=== PATIENT | female | born 1965 | race Caucasian/White ===

== ENCOUNTER 2016-10-05 13:26 | Emergency (ER) | payer OTHER ==
[2016-10-05 14:31] VITALS: BP 154/63
--- NOTE | 2016-10-05 15:47 | UC ---
Throat Pain/Nasal Ryan HPI - HPI Summary HPI Summary: complaint of nasal congestion that started 4 days ago sore throat pain which is worsening having some wheezing fever of 103 this morning coughing which is worse at night hasn't taken any medication for her symptoms has been using albuterol 2-3 times per day with relief - History of Current Complaint Chief Complaint: UCGeneralIllness Stated Complaint: COUGH,THROAT,CONGESTION Time Seen by Provider: 10/05/16 15:41 Hx Obtained From: Patient Hx Last Menstrual Period: 1995 - Allergies/Home Medications Allergies/Adverse Reactions: Allergies Allergy/AdvReac Type Severity Reaction Status Date / Time Penicillins Allergy Intermediate Rash Verified 10/05/16 14:31 enviromental Allergy Intermediate sob Uncoded 10/05/16 14:31 ,cough,wheezing premixed albuterol and Allergy See Comment Uncoded 10/05/16 14:31 ipratropium Home Medications: Home Medications Meloxicam [Mobic] 7.5 mg PO BID 10/05/16 [History Confirmed 10/05/16] PMH/Surg Hx/FS Hx/Imm Hx Previously Healthy: Yes Endocrine History Of: Denies: Diabetes, Thyroid Disease Cardiovascular History Of: Denies: Cardiac Disorders, Hypertension, Myocardial Infarction, Atrial Fibrillation Respiratory History Of: Reports: COPD - emphysema, Asthma, Bronchitis, Pneumonia GI/ History Of: Denies: Ulcer, Gastrointestinal Bleed Neurological History Of: Denies: CVA Psychological History Of: Denies: Depression Cancer History Of: Denies: Lung Cancer - Surgical History Surgical History: Yes Surgery Procedure, Year, and Place: Cholecystectomy. Hysterectomy, 1995, [place], [place] - Family History Known Family History: Positive: Respiratory Disease Negative: Hypertension, Diabetes - Social History Occupation: Disabled Lives: With Family Alcohol Use: Rare Substance Use Type: None Smoking Status (MU): Light Every Day Tobacco Smoker Type: Cigarettes Amount Used/How Often: 0 Length of Time of Smoking/Using Tobacco: 36 Years Have You Smoked in the Last Year: Yes When Did the Patient Quit Smoking/Using Tobacco: 04/30/16 Household Exposure Type: Cigarettes Cessation Counseling: Patient Advised to Stop - Immunization History Most Recent Influenza Vaccination: NOT THIS SEASON Review of Systems Constitutional: Fever Skin: Negative Eyes: Negative ENT: Sore Throat, Ear Ache, Nasal Discharge Respiratory: Cough Cardiovascular: Negative Gastrointestinal: Negative Genitourinary: Negative Motor: Negative Neurovascular: Negative Musculoskeletal: Negative Neurological: Negative Psychological: Negative All Other Systems Reviewed And Are Negative: Yes Physical Exam Triage Information Reviewed: Yes Appearance: No Pain Distress, Well-Nourished Vital Signs: Initial Vital Signs Temp 98.0 F 10/05/16 14:25 Pulse 90 10/05/16 14:25 Resp 18 10/05/16 14:25 BP 154/63 10/05/16 14:25 Pulse Ox 99 10/05/16 14:25 Vital Signs Reviewed: Yes Eyes: Positive: Conjunctiva Clear ENT: Positive: Pharyngeal erythema, Nasal congestion, Nasal drainage, TMs normal. Negative: Tonsillar swelling, Tonsillar exudate Neck: Positive: No Lymphadenopathy Respiratory: Positive: Rhonchi - throughout all lungs munoz, Wheezing Cardiovascular: Positive: RRR, No Murmur, Pulses Normal Abdomen Description: Positive: Nontender, Soft Bowel Sounds: Positive: Present Musculoskeletal: Positive: No Edema Neurological: Positive: Alert Psychological Exam: Normal Skin Exam: Normal Throat Pain/Nasal Course/Dx - Course Course Of Treatment: exam completed. 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 will followup with Dr Alvarado - Differential Dx/Diagnosis Differential Diagnosis/HQI/PQRI: Sinusitis, URI, Other - COPD exacerbation Provider Diagnoses: COPD exacerbation Discharge - Discharge Plan Condition: Stable Disposition: HOME Prescriptions: Azithromycin TAB* [Zithromax TAB (Z-ART) 250 mg #6 tabs] 2 tab PO .TODAY, THEN 1 DAILY #1 art predniSONE TAB* [Deltasone TAB*] 50 mg PO DAILY #5 tab Patient Education Materials: COPD (Chronic Obstructive Pulmonary Disease) (ED) Referrals: Nilo Alvarado MD [Primary Care Provider] - Additional Instructions: Start antibiotic and prednisone as directed Increase fluids and rest Take acetaminophen or ibuprofen for fever or pain use your albuterol as needed for shortness of breath and wheezing every 4-6 hours Please review your discharge instructions. If your symptoms do not improve please call your primary care provider or return to urgent care
== END 2016-10-05 16:02 | disposition home or self-care (01) ==
LOC: UCCORT 13:26
DX: J44.1 Chronic obstructive pulmonary disease with (acute) exacerbation (principal); J45.998 Other asthma; R50.9 Fever, unspecified; R05 Cough; F17.210 Nicotine dependence, cigarettes, uncomplicated; Z71.6 Tobacco abuse counseling; Z88.8 Allergy status to other drugs, medicaments and biological substances; Z88.0 Allergy status to penicillin
CPT/HCPCS: 99212; G0463

== ENCOUNTER 2017-01-09 19:20 | Emergency (ER) | payer OTHER ==
[2017-01-09 19:37] VITALS: BP 152/66
[2017-01-09] MEDS ORDERED: Albuterol 2.5 MG/3 ML NEB.SOL* (0.083%) INH ONE (20:01)
[2017-01-09] MEDS ORDERED: Ipratropium 0.5MG/2.5ML NEB* 0.5 MG/2.5 ML NEB.SOLN INH ONE (20:01)
[2017-01-09] MEDS ORDERED: methylPREDNISolone 125 MG* 2 ML VIAL IM ONE (20:01)
--- NOTE | 2017-01-09 20:07 | UC ---
Respiratory Complaint HPI - HPI Summary HPI Summary: Trouble breathing starting 3 days ago, now unable to lie flat. Thick sputum and nasal congestion, denies fever. Pt has COPD. - History of Current Complaint Chief Complaint: UCRespiratory Stated Complaint: CHEST ESTEVAN/SINUS/UPPER RESP. Time Seen by Provider: 01/09/17 19:45 Hx Obtained From: Patient Hx Last Menstrual Period: 1995 ?: No Onset/Duration: Gradual Onset, Lasting Days Timing: Constant Severity Initially: Mild Severity Currently: Moderate Character: Cough: Nonproductive Aggravating Factors: Exertion, Deep Breaths, Recumbent Position Alleviating Factors: Bronchodilator, Upright Position Associated Signs And Symptoms: Positive: Dyspnea, Wheezing, URI, Nasal Congestion. Negative: Fever, Chills - Allergies/Home Medications Allergies/Adverse Reactions: Allergies Allergy/AdvReac Type Severity Reaction Status Date / Time Penicillins Allergy Intermediate Rash Verified 01/09/17 19:37 enviromental Allergy Intermediate sob Uncoded 01/09/17 19:37 ,cough,wheezing premixed albuterol and Allergy See Comment Uncoded 01/09/17 19:37 ipratropium Home Medications: Home Medications celeCOXIB CAP* [Celebrex CAP*] 200 mg PO DAILY 01/09/17 [History Confirmed 01/09] PMH/Surg Hx/FS Hx/Imm Hx Endocrine History Of: Denies: Diabetes, Thyroid Disease Cardiovascular History Of: Denies: Cardiac Disorders, Hypertension, Myocardial Infarction, Atrial Fibrillation Respiratory History Of: Reports: COPD - emphysema, Asthma, Bronchitis, Pneumonia GI/ History Of: Denies: Ulcer, Gastrointestinal Bleed Neurological History Of: Denies: CVA Psychological History Of: Denies: Depression Cancer History Of: Denies: Lung Cancer - Surgical History Surgical History: Yes Surgery Procedure, Year, and Place: Cholecystectomy. Hysterectomy, 1995, [place], [place] - Family History Known Family History: Positive: Respiratory Disease Negative: Hypertension, Diabetes - Social History Alcohol Use: Rare Substance Use Type: None Smoking Status (MU): Light Every Day Tobacco Smoker Type: Cigarettes Amount Used/How Often: 0 Length of Time of Smoking/Using Tobacco: 36 Years Have You Smoked in the Last Year: Yes When Did the Patient Quit Smoking/Using Tobacco: 04/30/16 Household Exposure Type: Cigarettes - Immunization History Most Recent Influenza Vaccination: NOT THIS SEASON Review of Systems Constitutional: Negative Skin: Negative Eyes: Negative ENT: Nasal Discharge Respiratory: Shortness Of Breath, Cough Cardiovascular: Negative Gastrointestinal: Negative Genitourinary: Negative Motor: Negative Neurovascular: Negative Musculoskeletal: Negative Neurological: Negative Psychological: Negative All Other Systems Reviewed And Are Negative: Yes Physical Exam Triage Information Reviewed: Yes Appearance: Ill-Appearing, Obese Vital Signs: Initial Vital Signs Temp 97.8 F 01/09/17 19:33 Pulse 84 01/09/17 19:33 Resp 24 01/09/17 19:33 BP 152/66 01/09/17 19:33 Pulse Ox 94 01/09/17 19:33 Vital Signs Reviewed: Yes Eye Exam: Normal Eyes: Positive: Conjunctiva Clear ENT: Positive: Hearing grossly normal, Pharynx normal, Nasal congestion, TMs normal Dental Exam: Normal Neck exam: Normal Neck: Positive: Supple, Nontender, No Lymphadenopathy Respiratory: Positive: Respiratory distress, Decreased breath sounds, Wheezing, Expiration, Inspiration, Other: - tachypnea Cardiovascular Exam: Normal Cardiovascular: Positive: RRR, No Murmur Musculoskeletal Exam: Normal Neurological Exam: Normal Neurological: Positive: Alert Psychological Exam: Normal Skin Exam: Normal UC Diagnostic Evaluation - Laboratory O2 Sat by Pulse Oximetry: 94 Re-Evaluation - Re-Evaluation 1 Re-Evaluation Time: 20:39 Change: Improved - wheezing noises and aim movement increased, pt reports improvement Respiratory Course/Dx - Differential Dx/Diagnosis Provider Diagnoses: COPD exacerbation. bronchospasm Discharge - Discharge Plan Condition: Stable Disposition: HOME
[2017-01-09] MEDS ORDERED: Azithromycin TAB* 250 MG PO ONE (20:36)
[2017-01-09] MEDS ORDERED: Albuterol HFA INHALER* 8 gm MDI INH ONE (20:46)
== END 2017-01-09 21:15 | disposition home or self-care (01) ==
LOC: UCCORT 19:20
DX: J44.1 Chronic obstructive pulmonary disease with (acute) exacerbation (principal); J98.01 Acute bronchospasm; E66.9 Obesity, unspecified; Z90.49 Acquired absence of other specified parts of digestive tract; Z90.710 Acquired absence of both cervix and uterus; Z88.0 Allergy status to penicillin; Z87.891 Personal history of nicotine dependence
CPT/HCPCS: 96372; 99213; A9270-GY; G0463; J2930; J7644

== ENCOUNTER 2017-02-20 09:31 | Emergency (ER) | payer OTHER ==
[2017-02-20 10:39] VITALS: BP 96/69
--- NOTE | 2017-02-20 10:50 | UC ---
Respiratory Complaint HPI - HPI Summary HPI Summary: Gradually increasing trouble breathing, wheezing, nasal congestion, chest congestion. Feels that allergies area big part of it, is out of her loratadine. - History of Current Complaint Chief Complaint: UCRespiratory Stated Complaint: UPPER RESPIRATORY Time Seen by Provider: 02/20/17 10:40 Hx Obtained From: Patient Hx Last Menstrual Period: 1995 ?: No Onset/Duration: Gradual Onset, Lasting Days Timing: Constant Severity Initially: Mild Severity Currently: Severe Character: Cough: Productive Aggravating Factors: Exertion, Deep Breaths, Recumbent Position Alleviating Factors: Upright Position Associated Signs And Symptoms: Positive: Dyspnea, Wheezing, Nasal Congestion, Hoarseness, Sinus Discomfort - Allergies/Home Medications Allergies/Adverse Reactions: Allergies Allergy/AdvReac Type Severity Reaction Status Date / Time Penicillins Allergy Intermediate Rash Verified 02/20/17 10:34 enviromental Allergy Intermediate sob Uncoded 02/20/17 10:34 ,cough,wheezing premixed albuterol and Allergy See Comment Uncoded 02/20/17 10:34 ipratropium PMH/Surg Hx/FS Hx/Imm Hx Respiratory History: COPD, Asthma Psychological History: Depression - Surgical History Surgical History: Yes Surgery Procedure, Year, and Place: Cholecystectomy. Hysterectomy, 1995, [place], [place] - Family History Known Family History: Positive: Respiratory Disease Negative: Hypertension, Diabetes - Social History Alcohol Use: Rare Substance Use Type: None Smoking Status (MU): Former Smoker Type: Cigarettes Amount Used/How Often: 1/2 PPD Length of Time of Smoking/Using Tobacco: 39 Years Have You Smoked in the Last Year: Yes When Did the Patient Quit Smoking/Using Tobacco: ~11/20/16 Household Exposure Type: Cigarettes - Immunization History Most Recent Influenza Vaccination: NOT THIS SEASON Review of Systems Constitutional: Fatigue Skin: Negative Eyes: Negative ENT: Nasal Discharge, Sinus Congestion Respiratory: Shortness Of Breath, Cough Cardiovascular: Negative Gastrointestinal: Negative Genitourinary: Negative Motor: Negative Neurovascular: Negative Musculoskeletal: Negative Neurological: Negative Psychological: Negative All Other Systems Reviewed And Are Negative: Yes Physical Exam Triage Information Reviewed: Yes Appearance: Obese Vital Signs: Initial Vital Signs Temp 98.3 F 02/20/17 10:31 Pulse 78 02/20/17 10:31 Resp 20 02/20/17 10:31 BP 96/69 02/20/17 10:31 Pulse Ox 96 02/20/17 10:31 Vital Signs Reviewed: Yes Eye Exam: Normal Eyes: Positive: Conjunctiva Clear ENT: Positive: Hearing grossly normal, Nasal congestion, TMs normal. Negative: Tonsillar swelling, Tonsillar exudate Dental Exam: Normal Neck exam: Normal Neck: Positive: Supple, Nontender, No Lymphadenopathy Respiratory: Positive: Respiratory distress - mild, Accessory muscle use, Wheezing, Expiration, Other: - increased WOB Cardiovascular Exam: Normal Cardiovascular: Positive: RRR, No Murmur Musculoskeletal Exam: Normal Neurological Exam: Normal Neurological: Positive: Alert Psychological Exam: Normal Skin Exam: Normal UC Diagnostic Evaluation - Laboratory O2 Sat by Pulse Oximetry: 96 Re-Evaluation - Re-Evaluation First Eval Re-Evaluation Time: 11:28 Change: Improved - increased air movement, pt reports improvement, still wheezing Respiratory Course/Dx - Differential Dx/Diagnosis Provider Diagnoses: COPD exacerbation. bronchospasm Discharge - Discharge Plan Condition: Stable Disposition: HOME Prescriptions: Cetirizine* [ZyrTEC 10 MG TAB*] 10 mg PO DAILY #30 tab Ipratropium 0.5MG/2.5ML NEB* [Atrovent 0.5 MG NEB.NICOLE*] 0.5 mg INH BID #1 box predniSONE TAB* [Deltasone TAB*] 10 mg PO DAILY #39 tab Patient Education Materials: Bronchospasm (ED), COPD (Chronic Obstructive Pulmonary Disease) (ED) Referrals: ADRIENNE Duque [Primary Care Provider] - Additional Instructions: Call or return if you develop increasing fever, shortness of breath, chest pain , bloody sputum, or otherwise worsen. If you have not improved at all after several days, contact your primary care physician or return here.
[2017-02-20] MEDS ORDERED: methylPREDNISolone 125 MG* 2 ML VIAL IM ONE (10:51)
[2017-02-20] MEDS ORDERED: Ipratropium 0.5MG/2.5ML NEB* 0.5 MG/2.5 ML NEB.SOLN INH ONE (10:51)
[2017-02-20] MEDS ORDERED: Albuterol 2.5 MG/3 ML NEB.SOL* (0.083%) INH ONE (10:52)
== END 2017-02-20 11:31 | disposition home or self-care (01) ==
LOC: UCCORT 09:31
DX: J44.1 Chronic obstructive pulmonary disease with (acute) exacerbation (principal); F17.210 Nicotine dependence, cigarettes, uncomplicated; Z88.0 Allergy status to penicillin
CPT/HCPCS: 96372; 99212; G0463; J2930; J7644

== ENCOUNTER 2017-06-24 08:19 | Emergency (ER) | payer OTHER ==
[2017-06-24 08:46] VITALS: BP 138/77
--- NOTE | 2017-06-24 09:19 | UC ---
Respiratory Complaint HPI - HPI Summary HPI Summary: 52 year old with PMHx of COPD presents with cough, wheeze, sinus pressure and increased use of RACHEL. Sinus pressure and pain, headache, cough and chest congestion. Hx COPD. Pt states cough/SOB getting progressively worse- SOB worse when lying down. Using albuterol neb/symbicort daily w/ temporary relief- last used this morning around 0800. Feels like a COPD exacerbation. No cp OR apple has this many times in the past and requests steroid injection [ End ] - History of Current Complaint Chief Complaint: UCRespiratory Stated Complaint: HEAD ACHE,BREATHING Time Seen by Provider: 06/24/17 09:03 Hx Obtained From: Patient Hx Last Menstrual Period: 1995 Onset/Duration: Gradual Onset Timing: Constant Character: Cough: Nonproductive Aggravating Factors: Exertion Alleviating Factors: Bronchodilator Associated Signs And Symptoms: Positive: Wheezing, Nasal Congestion - Allergies/Home Medications Allergies/Adverse Reactions: Allergies Allergy/AdvReac Type Severity Reaction Status Date / Time Penicillins Allergy Intermediate Rash Verified 06/24/17 08:38 enviromental Allergy Intermediate sob Uncoded 06/24/17 08:38 ,cough,wheezing premixed albuterol and Allergy See Comment Uncoded 06/24/17 08:38 ipratropium Home Medications: Home Medications Budesonide/Formote 80/4.5(NF) [Symbicort 80/4.5 (NF)] 2 puff BID 06/24/17 [ History Confirmed 06/24/17] Vitamin D CAP* [Drisdol CAP*] 1 tab WEEKLY 06/24/17 [History Confirmed 06/24/17] Water Pill 1 tab BID 06/24/17 [History] traMADol TAB* [Ultram*] 1 tab BID 06/24/17 [History Confirmed 06/24/17] PMH/Surg Hx/FS Hx/Imm Hx Previously Healthy: Yes Respiratory History: COPD, Asthma GI/ History: Gastroesophageal Reflux - Surgical History Surgical History: Yes Surgery Procedure, Year, and Place: Cholecystectomy. Hysterectomy, 1995, [place], [place] - Family History Known Family History: Positive: Respiratory Disease Negative: Hypertension, Diabetes - Social History Occupation: Unemployed Lives: With Family Alcohol Use: None Substance Use Type: None Smoking Status (MU): Current Every Day Smoker Type: Cigarettes Amount Used/How Often: 2-3 cigs/day Length of Time of Smoking/Using Tobacco: 39 Years Have You Smoked in the Last Year: Yes When Did the Patient Quit Smoking/Using Tobacco: ~11/20/16 Household Exposure Type: Cigarettes Cessation Counseling: Patient Advised to Stop - Immunization History Most Recent Influenza Vaccination: NEVER GET IT Review of Systems ENT: Nasal Discharge Respiratory: Cough All Other Systems Reviewed And Are Negative: Yes Physical Exam Triage Information Reviewed: Yes Appearance: Well-Appearing, No Pain Distress, Well-Nourished Vital Signs: Initial Vital Signs Temp 98 F 06/24/17 08:41 Pulse 91 06/24/17 08:41 Resp 18 06/24/17 08:41 BP 138/77 06/24/17 08:41 Pulse Ox 97 06/24/17 08:41 Vital Signs Reviewed: Yes Eye Exam: Normal ENT Exam: Normal Dental Exam: Normal Neck exam: Normal Neck: Positive: 1 Respiratory: Positive: Chest non-tender, No respiratory distress, No accessory muscle use, Wheezing - RLL with expiration. Negative: Respiratory distress, Crackles, Rhonchi, Stridor Cardiovascular Exam: Normal Abdominal Exam: Normal Musculoskeletal Exam: Normal Neurological Exam: Normal Psychological Exam: Normal Skin Exam: Normal UC Diagnostic Evaluation - Laboratory O2 Sat by Pulse Oximetry: 97 Respiratory Course/Dx - Course Course Of Treatment: depo at this time with steroid taper and doxy for copd exac ang to go to PCP tomorrow - Differential Dx/Diagnosis Differential Diagnosis/HQI/PQRI: Asthma, Bronchitis, Lower Resp Infection, Sinusitis Provider Diagnoses: COPD exacerbation Discharge - Discharge Plan Condition: Good Disposition: HOME Patient Education Materials: COPD (Chronic Obstructive Pulmonary Disease) (ED)
[2017-06-24] MEDS ORDERED: methylPREDNISolone 125 MG* 2 ML VIAL IM ONE (09:31)
== END 2017-06-24 10:25 | disposition home or self-care (01) ==
LOC: UCCORT 08:19
DX: J44.1 Chronic obstructive pulmonary disease with (acute) exacerbation (principal); K21.9 Gastro-esophageal reflux disease without esophagitis; F17.210 Nicotine dependence, cigarettes, uncomplicated
CPT/HCPCS: 96372; 99212; G0463; J2930

== ENCOUNTER 2017-11-19 10:52 | Emergency (ER) | payer OTHER ==
[2017-11-19 12:18] VITALS: BP 142/84
--- NOTE | 2017-11-19 12:25 | UC ---
Respiratory Complaint HPI - HPI Summary HPI Summary: 52 yo female with 2 day hx of cough with wheezing CP with cough recently had prednisone taper no f/c - History of Current Complaint Chief Complaint: UCRespiratory Stated Complaint: CHEST CONGESTION, BACK PAIN Time Seen by Provider: 11/19/17 12:20 Hx Obtained From: Patient Hx Last Menstrual Period: 1995 Onset/Duration: Gradual Onset, Lasting Days Timing: Constant Severity Initially: Moderate Severity Currently: Severe Pain Intensity: 8 Pain Scale Used: 0-10 Numeric Character: Cough: Nonproductive Alleviating Factors: Nothing - Allergies/Home Medications Allergies/Adverse Reactions: Allergies Allergy/AdvReac Type Severity Reaction Status Date / Time gabapentin Allergy Hives/Diff. Verified 11/19/17 12:06 Breathing/I tching Penicillins Allergy Rash Verified 11/19/17 12:06 pregabalin [From Lyrica] Allergy DUE TO Verified 11/19/17 12:06 ALLERGY TO GABAPENTIN enviromental Allergy Intermediate sob Uncoded 11/19/17 12:06 ,cough,wheezing premixed albuterol and Allergy See Comment Uncoded 11/19/17 12:06 ipratropium Home Medications: Home Medications Albuterol 2.5MG/3ML (0.083%)* [Ventolin 2.5 MG/3 ML NEB.NICOLE*] 2.5 mg INH Q4H PRN 11/19/17 [History Confirmed 11/19/17] Amitriptyline TAB* [Elavil TAB*] 25 mg PO BEDTIME 11/19/17 [History Confirmed ] Hydrochlorothiazide TAB* [Hydrodiuril TAB*] 25 mg PO BID 11/19/17 [History Confirmed 11/19/17] Inhaler. 11/19/17 [History] Loratadine 10 mg PO DAILY 11/19/17 [History Confirmed 11/19/17] PMH/Surg Hx/FS Hx/Imm Hx Previously Healthy: Yes Respiratory History: COPD, Asthma, Bronchitis, Pneumonia - Surgical History Surgical History: Yes Surgery Procedure, Year, and Place: Cholecystectomy. Hysterectomy, 1995, [facility] . Rt [facility]RI[facility] - [facility] - Family History Known Family History: Positive: Respiratory Disease Negative: Hypertension, Diabetes - Social History Alcohol Use: None Substance Use Type: None Smoking Status (MU): Light Every Day Tobacco Smoker Type: Cigarettes Amount Used/How Often: 1 cigs/day Length of Time of Smoking/Using Tobacco: 39 Years Have You Smoked in the Last Year: Yes When Did the Patient Quit Smoking/Using Tobacco: ~11/20/16 Household Exposure Type: Cigarettes - Immunization History Most Recent Influenza Vaccination: NEVER GET IT Review of Systems Constitutional: Negative Skin: Negative Eyes: Negative ENT: Negative Respiratory: Cough Cardiovascular: Chest Pain Gastrointestinal: Negative Genitourinary: Negative Motor: Negative Neurovascular: Negative Musculoskeletal: Negative Neurological: Negative Psychological: Negative Is Patient Immunocompromised?: No All Other Systems Reviewed And Are Negative: Yes Physical Exam Triage Information Reviewed: Yes Appearance: Well-Appearing, No Pain Distress, Well-Nourished Vital Signs: Initial Vital Signs Temp 98.3 F 11/19/17 12:12 Pulse 90 11/19/17 12:12 Resp 20 11/19/17 12:12 BP 142/84 11/19/17 12:12 Pulse Ox 96 11/19/17 12:12 Vital Signs Reviewed: Yes Eyes: Positive: Conjunctiva Clear ENT: Positive: Hearing grossly normal. Negative: Nasal congestion, Nasal drainage, Trismus, Muffled voice, Hoarse voice Neck: Positive: Supple, Nontender, No Lymphadenopathy Respiratory: Positive: Lungs clear, No respiratory distress, No accessory muscle use, Wheezing Cardiovascular: Positive: RRR, No Murmur Pelvic Exam: Positive: Speculum Exam Normal Musculoskeletal: Positive: ROM Intact, No Edema Neurological: Positive: Alert Psychological Exam: Normal Skin Exam: Normal UC Diagnostic Evaluation - Laboratory O2 Sat by Pulse Oximetry: 96 - normal/not hypoxic - Radiology Xray Interpretation: No Acute Changes Radiology Interpretation Completed By: Radiologist Re-Evaluation - Re-Evaluation First Eval Re-Evaluation Time: 12:55 Change: Improved - better air movement/ no wheezing Respiratory Course/Dx - Differential Dx/Diagnosis Provider Diagnoses: acute bronchitis with bronchospasm Discharge - Sign-Out/Discharge Documenting (check all that apply): Discharge - Discharge Plan Condition: Stable Disposition: HOME Prescriptions: DOXYcycline CAP(*) [DOXYcycline 100MG CAP(*)] 100 mg PO BID #20 cap Ipratropium 0.5MG/2.5ML NEB* [Atrovent 0.5 MG NEB.NICOLE*] 0.5 mg INH Q6H PRN #1 neb.soln PRN Reason: Sob/Wheezing predniSONE [Deltasone] 40 mg PO DAILY #10 tab Patient Education Materials: Acute Bronchitis (ED) Referrals: Dee Simeon MD [Primary Care Provider] - As Soon As Possible Additional Instructions: recheck for worsening symptoms - Billing Disposition and Condition Condition: STABLE Disposition: HOME
[2017-11-19] MEDS ORDERED: Albuterol 2.5 MG/3 ML NEB.SOL* (0.083%) INH ONE (12:27)
[2017-11-19] MEDS ORDERED: Ipratropium 0.5MG/2.5ML NEB* 0.5 MG/2.5 ML NEB.SOLN INH ONE (12:27)
--- NOTE | 2017-11-19 12:49 | RAD ---
INDICATION: Cough, congestion, chest pain. Chronic obstructive pulmonary disease. COMPARISON: October 12, 2017 and July 10, 2013 TECHNIQUE: Dual energy PA and routine lateral views of the chest were obtained. REPORT: Elevated lung volumes with increased AP thoracic diameter. 0.4 cm calcified granuloma at the periphery of the LEFT midlung zone and calcified LEFT hilar lymph nodes without change. Additional calcific density at the anterior superior thorax on the lateral view. While nonspecific this finding is unchanged from x-ray from November 16, 2011 without concern. No suspicious focal pulmonary lesion, alveolar consolidation, pleural effusion, pneumothorax. The heart, pulmonary vasculature, and mediastinal contours are unremarkable. Mild thoracic degenerative spondylosis. IMPRESSION: 1. Elevated lung volumes consistent with history of obstructive lung disease. 2. Stigmata of prior granulomatous disease. 3. No acute cardiopulmonary process evident.
== END 2017-11-19 13:09 | disposition home or self-care (01) ==
LOC: UCCORT 10:52
DX: J20.9 Acute bronchitis, unspecified (principal); Z88.8 Allergy status to other drugs, medicaments and biological substances; J44.9 Chronic obstructive pulmonary disease, unspecified; Z87.891 Personal history of nicotine dependence
CPT/HCPCS: 71046; 99212; G0463

== ENCOUNTER 2018-07-06 09:58 | Inpatient (IN) | payer MEDICARE, MEDICAID ==
[~2018-07-06 09:58] MED LIST: Buffered Lidocaine 0.9% SYRIN* 5 ML/SYR SYRINGE INTRADERM ONE; Famotidine IV* 10 MG/ML 2 ML (20 mg) IV ONE
[2018-07-06] MEDS ORDERED: Famotidine IV* 10 MG/ML 2 ML (20 mg) ONE (10:29)
[2018-07-06] MEDS ORDERED: Clindamycin 900 MG/D5W BAG(*) 900 MG/50 ML BAG IVPB ONE (10:29)
[2018-07-06] MEDS ORDERED: Heparin VIAL(*) 5000 UNITS/ML VIAL (FIVE THOUSAND) ONE (10:29)
[2018-07-06] MEDS ORDERED: fentaNYL* 50 MCG/ML 2 ML VIAL (100 MCG VIAL) ONE ×3 (10:29→13:28)
--- OUTSIDE RECORDS SUMMARY | 2018-07-06 10:29 | XMS REPORT ---
:1965 External Reference #:[id number] Author Organization [employer] Address [address] [facility] [address] [facility] [place] [address] Phone [phone] Care Team Providers Name Role Phone Dee Simeon M.D. Primary Care Physician Unavailable Payers Type Date Identification Numbers Payment Provider Subscriber Commercial Policy Number: [id number] Janusz Gao PayID: [id number] [address] [place] [id number] Problems Description No Information Family History Date Family Member(s) Problem(s) Comments Father due to () Emphysema Father due to () - pulmonary Emphysema disease Mother due to Diabetes () Mother due to Cancer () Mother due to Cancer () - hypertension Onset: Siblings 6 (06/09/2018) Siblings 6 1- at 32 years with cardiac issues, specifics unknown specifics on sibling health hx, unknown Social History Type Date Description Comments Marital Status Single Lives With 3 grandchildren ETOH Use Denies alcohol use Smoking Patient is a former smoker Recreational Drug Use Denies Drug Use Smoking Patient is a former smoker quit 7 months ago Daily Caffeine Does Not Consume Caffeine Exercise Type/Frequency Exercises sporadically Allergies, Adverse Reactions, Alerts Date Description Reaction Status Severity Comments 06/09/2018 Lyrica active 06/09/2018 Gabapentin active 06/09/2018 Penicillin active Medications Medication Date Status Form Strength Qnty SIG Indications Ordering Provider Celebrex Active Capsules 200mg 1 tab by Unknown /0000 mouth twice daily Carbamazepine ER Active Caps ER 100mg take 1 tab Unknown /0000 12HR by mouth twice daily Hydrochlorothiazid Active Tablets 25mg 1 by mouth Unknown e /0000 every day Tramadol HCL Active Tablets 50mg 1-2 Unknown /0000 tablets by mouth every 6 hours as needed pain Amitriptyline HCL Active Tablets 150mg 1/2 po q hs Albuterol Sulfate Active Nebulizer (2.5mg/3M 1 vial via Unknown L) 0.083% nebulizer 4 times daily as needed Symbicort Active Aerosol 160-4.5mc 1 puff Unknown g/Act twice a day Nystatin Active Ointment [id number] apply t/GM twice daily as neededd Incruse Ellipta Active Aerosol 62.5mcg/I inhale one Unknown nh puff by mouth every day Loratadine Active Capsules 10mg once a day Ventolin HFA Active Aerosol 108(90Bas 2 puffs by e) mouth four mcg/Act times a day as needed Pulmicort Hx Aerosol 90mcg/Act inhale one Unknown Flexhal puff by - mouth 06/08 twice day Vital Signs Date Vital Result Comment 06/09/2018 Height 60 inches 5'0" Weight 229.00 lb Heart Rate 80 /min BP Systolic Sitting 124 mmHg LA, large BP Diastolic Sitting 80 mmHg LA, large BMI (Body Mass Index) 44.7 kg/m2 Results Description No Information Procedures Date CPT Code Description Status 06/09/2018 09937 EKG Tracing & Interpretation Completed Plan of Care Future Appointment(s):06/28/2018 8:45 am - Aramis Walters M.D. at [facility]06/09/2018 - Aramis Walters M.D.E66.9 Obesity, [id number] Encounter for preprocedural cardiovascular uesxhggmbjyX56.0 Nonrheumatic aortic (valve) stenosisNew Orders:EchocardiogramFollow up:one yr ovZ72.0 Tobacco useG47.33 Obstructive sleep apnea (adult) (pediatric)R06.02 Shortness of breathNew Orders:Stress Test, Pharmacologic Nuclear (Lexiscan)
[2018-07-06] MEDS ORDERED: Albuterol (2.5 MG) 0.5 % CONC 2.5 MG/0.5 ML NEB.SOLN (ICU and ED only) INH ONE (11:38)
[2018-07-06] MEDS ORDERED: Albuterol 2.5 MG/3 ML NEB.SOL* (0.083%) INH ONE ×3 (11:41→15:10)
[2018-07-06] MEDS ORDERED: Midazolam* 1 MG/ML 5 ML VIAL (5 MG) ONE (12:13)
[2018-07-06] MEDS ORDERED: Rocuronium* 10 MG/ML VIAL ONE ×2 (12:13→13:12)
[2018-07-06] MEDS ORDERED: Naloxone* 0.4 MG/ML 1 ML VIAL IV PRN (12:40)
[2018-07-06] MEDS ORDERED: DiMENhydriNATE IV* 50 MG/ML VIAL IV PUSH PRN (12:40)
[2018-07-06] MEDS ORDERED: HYDROmorphone INJ1* 1 MG/ML SYRINGE IV PRN (12:40)
[2018-07-06] MEDS ORDERED: Acetaminophen IV 1GM/100ML * 1,000 MG/100 ML VIAL IVPB ONE (12:40)
[2018-07-06] MEDS ORDERED: Succinylcholine* 20 MG/ML 10 ML VIAL ONE (13:16)
[2018-07-06] MEDS ORDERED: Propofol* 10 MG/ML 20 ML BTL IV PUSH ONE (13:16)
[2018-07-06] MEDS ORDERED: Dexamethasone IV* 4 MG/ML 1 ML (4 MG) ONE (13:16)
[2018-07-06] MEDS ORDERED: Lidocaine 2% PF * 5 ML VIAL ONE (13:16)
[2018-07-06] MEDS ORDERED: DiMENhydriNATE IV* 50 MG/ML VIAL ONE ×2 (13:16→14:23)
[2018-07-06] MEDS ORDERED: Ketorolac INJ* 30 MG/ML 1 ML VIAL ONE (13:16)
[2018-07-06] MEDS ORDERED: Ondansetron INJ* 2 MG/ML VIAL ONE (13:16)
[2018-07-06] MEDS ORDERED: Bupivacaine 0.25% W/EPI* 10 ML SDV ONE (13:28)
[2018-07-06] MEDS ORDERED: Ciprofloxacin 400MG IVPREMIX(* 400 MG/200 ML BAG ONE (13:47)
[2018-07-06] MEDS ORDERED: HYDROmorphone INJ1* 1 MG/ML SYRINGE ONE ×2 (14:22→15:32)
--- NOTE | 2018-07-06 14:45 | OP ---
Operative Report - Blank - Operative Report Date of Operation: 07/06/18 Note: Brief Operative Note Preop Dx: Morbid Obesity Postop Dx: Same Procedure: Laparoscopic Sleeve Gastrectomy Anesthesia: GET Surgeon: Dr. Wu Copy Lathe Tender: KIN Cheng; Juanpablo DORAN Fluids: 2000 mL EBL: None Specimen: Portion of stomach Drains: None Findings: dictated
[2018-07-06] MEDS: Albuterol 2.5 MG/3 ML NEB.SOL* (0.083%) INH ONE ×2 (14:51→15:11)
[2018-07-06] MEDS ORDERED: Glycopyrrolate IV* 0.2 MG/ML 1 ML VIAL ONE (14:55)
[2018-07-06] MEDS ORDERED: Neostigmine Methylsulfate* 2 MG/2 ML SYRINGE ONE (14:56)
[2018-07-06] MEDS ORDERED: Ondansetron INJ* 2 MG/ML VIAL IV PRN (15:17)
[2018-07-06] MEDS ORDERED: HYDROcodone/ACET. 7.5/325 LIQ* 15 ML UDC PO PRN (15:17)
[2018-07-06] MEDS ORDERED: Acetaminophen ADULT LIQ* 650 MG/20.3 ML UDC PO PRN (15:17)
[2018-07-06] MEDS ORDERED: Acetaminophen IV 1GM/100ML * 100 ML ONE (15:23)
[2018-07-06] MEDS ORDERED: Ipratropium 0.5MG/2.5ML NEB* 0.5 MG/2.5 ML NEB.SOLN INH PRN (15:26)
[2018-07-06] MEDS: Ketorolac INJ* 30 MG/ML 1 ML VIAL IV PRN (17:30)
[2018-07-06] MEDS: Metoprolol Tartrate IV* 1 MG/ML 5 ML VIAL IV SCH ×2 (18:13→23:05)
[2018-07-06] MEDS: Fluticasone NASAL SPRAY 50MCG* 16 gm SPRAY BTL BOTH NARES SCH (18:42)
[2018-07-06] MEDS: HYDROmorphone INJ1* 1 MG/ML SYRINGE IV PRN ×2 (19:39→23:02)
[2018-07-06] MEDS: Albuterol 2.5 MG/3 ML NEB.SOL* (0.083%) INH PRN (20:00)
[2018-07-06] MEDS ORDERED: Albuterol 2.5 MG/3 ML NEB.SOL* (0.083%) INH SCH (21:00)
[2018-07-06] MEDS: Famotidine IV* 10 MG/ML 2 ML (20 mg) IV SLOW PU SCH (21:11)
[2018-07-06] MEDS: Heparin VIAL(*) 5000 UNITS/ML VIAL (FIVE THOUSAND) SUBCUT SCH (21:12)
[2018-07-07] MEDS: Albuterol 2.5 MG/3 ML NEB.SOL* (0.083%) INH SCH ×5 (00:30→23:05)
[2018-07-07] MEDS: HYDROmorphone INJ1* 1 MG/ML SYRINGE IV PRN ×6 (02:24→22:47)
[2018-07-07] MEDS: Metoprolol Tartrate IV* 1 MG/ML 5 ML VIAL IV SCH ×3 (05:34→18:19)
[2018-07-07] MEDS: Heparin VIAL(*) 5000 UNITS/ML VIAL (FIVE THOUSAND) SUBCUT SCH ×3 (05:35→22:22)
[2018-07-07] MEDS: Umeclidinium 62.5 MDI(NF) MDI INH SCH (07:07)
[2018-07-07] MEDS: Famotidine IV* 10 MG/ML 2 ML (20 mg) IV SLOW PU SCH ×2 (08:22→22:23)
[2018-07-07] MEDS ORDERED: Ipratropium 0.5MG/2.5ML NEB* 0.5 MG/2.5 ML NEB.SOLN INH PRN ×2 (10:15→17:23)
--- NOTE | 2018-07-07 10:23 | OP ---
CC: [facility]; Dr. Dee Simeon * DATE OF OPERATION: 07/06/18 - ROOM #338 DATE OF : 61 PRIMARY CARE DOCTOR: Dr. Dee Simeon. SURGEON: Estevan Wu MD. TAKE AWAY MAN: KIN Rahman. ANESTHESIOLOGIST: Dr. Antoine. ANESTHESIA: General anesthesia. PRE-OP DIAGNOSIS: Clinically severe obesity. POST-OP DIAGNOSIS: Clinically severe obesity. OPERATIVE PROCEDURE: Laparoscopic sleeve gastrectomy. ESTIMATED BLOOD LOSS: Minimal. FLUIDS: 2000 cc of crystalloid fluid given. SPECIMEN: Portion of stomach. DRAINS: None. DESCRIPTION OF PROCEDURE: The patient was identified in the preoperative area. Consent was signed. She was marked, brought to the operating room, placed on the operating table in supine position. Preoperative antibiotics were given. Sequential devices were placed on bilateral lower extremities. General anesthesia was induced. The patient's abdomen was prepped and draped in a standard surgical fashion. A time-out was performed. Folds of the umbilicus were elevated anteriorly and a Veress needle was inserted into the abdominal cavity, which was then allowed to insufflate to a pressure of 15 mmHg. The patient tolerated the insufflation well. A 12-mm trocar was then placed in the upper midline, just left of midline. Laparoscope was inserted and there was no evidence of injury from the trocar insertion or from the Veress needle. Review of the abdomen showed Veress needle intact and this was removed. There was normal appearing bowel. The liver appeared appropriate size. Additional trocars were then placed in the following position : Two 5 mm in the left upper quadrant and a 12 mm in the right upper quadrant. Table was placed in a steep reverse Trendelenburg. A Rosalba retractor was inserted through a subxiphoid incision and the liver was retracted anteriorly into the right. This exposed the gastroesophageal fat pad, which was retracted medially and a blunt dissection was carried out at the left crura, right at the angle of His. We did dissect the fat pad off the anterior stomach, not taking it off entirely but only reflecting it towards the lesser curvature. Next, a retrogastric tunnel was made at approximately 6 cm proximal to the pylorus on the greater curvature. LigaSure device was used to take the vasculature right up to the angle of His. Posterior attachments were similarly taken until the stomach could be completely rotated on its axis. Next, the sleeve stomach was created utilizing 60 mm purple LOLIS stapling devices firing from the greater curvature distally towards the incisura. We assured its sizing over a 40-Malay bougie and used 4 stapling devices, 60 mm in total. The bougie was removed. The staple line appeared intact without evidence of bleeding, kinking, or twisting. The Rosalba retractor was removed and the liver fall gently on top of the sleeve stomach. The resected portion of the stomach was then placed in an endoscopic retrieval bag and brought out through the right upper quadrant port site. This was dilated bluntly and closed the fascial layer with an 0 Polysorb suture using a Weck device. The abdomen was allowed to collapse. Trocars were removed under direct vision and all incisions were reapproximated with 4-0 Monocryl subcuticular sutures followed by Steri-Strips and sterile dressing. The patient tolerated the procedure well and was transferred to the PACU in stable condition. [id number]/[facility] #: [id number] LIA
[2018-07-07] MEDS: Albuterol 2.5 MG/3 ML NEB.SOL* (0.083%) INH PRN (11:18)
[2018-07-07] MEDS: D5W 1/2 NS KCl 20 Meq 1000 ML* 1,000 ML IV SCH (15:56)
--- NOTE | 2018-07-07 16:34 | PN ---
Progress Note - Progress Note Date of Service: 07/07/18 SOAP: Subjective:POD#1 S/P LAP SLEEVE GASTRECTOMY []AMBULATING;USING INSPIRON;TOLERATING CLEARS;STATES THAT LIQ HYDROCODONE MAKES HER VOMIT Objective:AFEB,VSS;LUNGS:CLEAR BILAT;HEART:rrr;ABD:OBESE;ALL LAP SITE INTACT WITH DRESSINGS,SURROUNDING ECCHYMOSIS;NO ACTIVE BLEEDING;EXT:NONTENDER CALVES UGI SERIES:NO LEAK [] Assessment:STABLE S/P LAP SLEEVE [] Plan:CONTINUE CLEARS,AMBULATE,INSPIRON LIQ HYDROCODONE DISCONTINUED LIKELY DISCH 07/08/18 []
[2018-07-07] MEDS: Fluticasone NASAL SPRAY 50MCG* 16 gm SPRAY BTL BOTH NARES SCH (18:19)
[2018-07-07] MEDS: Ketorolac INJ* 30 MG/ML 1 ML VIAL IV PRN (22:23)
[2018-07-08] MEDS: D5W 1/2 NS KCl 20 Meq 1000 ML* 1,000 ML IV SCH (00:09)
[2018-07-08] MEDS: Metoprolol Tartrate IV* 1 MG/ML 5 ML VIAL IV SCH ×2 (00:10→05:46)
[2018-07-08] MEDS: HYDROmorphone INJ1* 1 MG/ML SYRINGE IV PRN ×2 (01:51→05:20)
[2018-07-08] MEDS: Albuterol 2.5 MG/3 ML NEB.SOL* (0.083%) INH SCH ×3 (03:01→10:02)
[2018-07-08] MEDS: Heparin VIAL(*) 5000 UNITS/ML VIAL (FIVE THOUSAND) SUBCUT SCH (05:20)
[2018-07-08] MEDS: Famotidine IV* 10 MG/ML 2 ML (20 mg) IV SLOW PU SCH (08:42)
[2018-07-08] MEDS: Umeclidinium 62.5 MDI(NF) MDI INH SCH (08:43)
[2018-07-08 08:46] VITALS: BP 107/44
--- NOTE | 2018-07-08 21:02 | DS ---
AMENDED REPORT NOW INCLUDES COSIGNER DESIGNATION CC: Dr. Simeon * DISCHARGE SUMMARY: DATE OF ADMISSION: 07/06/18 DATE OF DISCHARGE: 07/08/18 ATTENDING SURGEON: Estevan Wu MD * (dictated by Fidelia Bey NP) HOSPITAL COURSE: Please refer to admission history and physical for admission details. The patient was taken to the operating room on 07/06/18 and underwent laparoscopic sleeve gastrectomy. She had an otherwise uneventful postoperative course, and as of the morning of discharge was tolerating 120 mL of clear liquids per hour. Her pain was well controlled. She was ambulating in the halls and using her Inspiron. PHYSICAL EXAMINATION: Vital Signs: Temp max 98, blood pressure 107/44, pulse 71 and regular, respiratory rate 18, O2 saturation on room air 100%. General: Well nourished and in no acute distress. Lungs: Breath sounds bilaterally clear and equal. Heart: Regular rate and rhythm. No murmurs or rubs. Abdomen : Laparoscopic incision sites with surrounding ecchymosis; right lateral incision with scant bloody drainage, no oozing. Active bowel sounds. Obese and soft with appropriate incisional tenderness. Extremities are warm without calf tenderness or edema. IMPRESSION: Status post laparoscopic sleeve gastrectomy, doing well. Meeting criteria for discharge. PLAN: Discharge home today. Discharge instructions were reviewed. She will follow the prescribed bariatric dietary guidelines and has an appointment next week at [facility] for followup. MEG BEY NP [id number]/[facility] #: [id number] [facility] CENTERAndrew
== END 2018-07-08 12:00 | disposition home or self-care (01) | DRG 621 ==
LOC: AA 10:24 → SSU 16:58
PROVIDERS: ADMIT Surgery; ATTEND Surgery
PROC: 0DB64Z3 Excision of Stomach, Percutaneous Endoscopic Approach, Vertical (ICD-10-PCS; principal; 2018-07-06 11:00)
DX: E66.01 Morbid (severe) obesity due to excess calories (principal); Z68.41 Body mass index [BMI] 40.0-44.9, adult; E78.5 Hyperlipidemia, unspecified; G47.33 Obstructive sleep apnea (adult) (pediatric); I10 Essential (primary) hypertension; J44.9 Chronic obstructive pulmonary disease, unspecified; F50.81 Binge eating disorder; F32.9 Major depressive disorder, single episode, unspecified; M79.7 Fibromyalgia; E83.119 Hemochromatosis, unspecified; I35.0 Nonrheumatic aortic (valve) stenosis; F41.9 Anxiety disorder, unspecified; M21.40 Flat foot [pes planus] (acquired), unspecified foot; M19.90 Unspecified osteoarthritis, unspecified site; M54.16 Radiculopathy, lumbar region; Z90.49 Acquired absence of other specified parts of digestive tract; Z80.6 Family history of leukemia; Z82.61 Family history of arthritis; Z82.3 Family history of stroke; Z83.49 Family history of other endocrine, nutritional and metabolic diseases; Z90.710 Acquired absence of both cervix and uterus; Z85.41 Personal history of malignant neoplasm of cervix uteri; Z88.8 Allergy status to other drugs, medicaments and biological substances; Z88.0 Allergy status to penicillin; Z87.891 Personal history of nicotine dependence; Z82.49 Family history of ischemic heart disease and other diseases of the circulatory system; Z56.0 Unemployment, unspecified
CPT/HCPCS: 43775; 74246; 88307; 94640; J0330; J0744; J1100; J1170; J1240; J1644; J1885; J2250; J2405; J2704; J3010; J3490

== ENCOUNTER 2018-08-22 11:29 | Emergency (ER) | payer MEDICARE, MEDICAID ==
[2018-08-22] MEDS ORDERED: Ipratropium 0.5MG/2.5ML NEB* 0.5 MG/2.5 ML NEB.SOLN INH ONE (13:07)
[2018-08-22] MEDS ORDERED: Albuterol 2.5 MG/3 ML NEB.SOL* (0.083%) INH ONE (13:07)
--- NOTE | 2018-08-22 13:07 | UC ---
Respiratory Complaint HPI - HPI Summary HPI Summary: Pt presents with h/o COPD. Reports 3 days progressive cough, productive yellow sputum, wheeze and fatigue. Pt using nebulizer - ran out albuterol 4am. No fever, chills. No myalgia. + nasal congestion. No ear pain, sinus pain. Last COPD exaceration approx 6 months ago. No intubation, no hospitalization. Last pred 6 months Medications reviewed this visit - History of Current Complaint Stated Complaint: COPD ACTING UP Time Seen by Provider: 08/22/18 13:06 Hx Obtained From: Patient Hx Last Menstrual Period: 1995 ?: No - Allergies/Home Medications Allergies/Adverse Reactions: Allergies Allergy/AdvReac Type Severity Reaction Status Date / Time gabapentin Allergy Severe Hives/Diff. Verified 08/22/18 12:52 Breathing/I tching pregabalin [From Lyrica] Allergy Severe DUE TO Verified 08/22/18 12:52 ALLERGY TO GABAPENTIN Penicillins Allergy Intermediate Rash Verified 08/22/18 12:52 enviromental Allergy Intermediate sob Uncoded 08/22/18 12:52 ,cough,wheezing premixed albuterol and Allergy See Comment Uncoded 08/22/18 12:52 ipratropium Home Medications: Home Medications Albuterol inh POWDER (NF) [Proair Respiclick] 108 mcg IN 08/22/18 [History] Omeprazole CAP* [Prilosec CAP* 20 MG] 20 mg PO DAILY 08/22/18 [History Confirmed 08/22/18] PMH/Surg Hx/FS Hx/Imm Hx Previously Healthy: Yes Endocrine History: Diabetes Cardiovascular History: Hypertension Respiratory History: COPD - Surgical History Surgical History: Yes Surgery Procedure, Year, and Place: Cholecystectomy. Hysterectomy, 1995, [place], [place]. Rt WRIST - GANGLION CYST - Family History Known Family History: Positive: Respiratory Disease, Non-Contributory Negative: Hypertension, Diabetes - Social History Alcohol Use: None Alcohol Amount: quit in 1996- History of alcoholism Substance Use Type: None Smoking Status (MU): Light Every Day Tobacco Smoker Type: Cigarettes Amount Used/How Often: 1 cigs/day Length of Time of Smoking/Using Tobacco: 39 Years Have You Smoked in the Last Year: Yes When Did the Patient Quit Smoking/Using Tobacco: ~11/20/16 Household Exposure Type: Cigarettes - Immunization History Most Recent Influenza Vaccination: NEVER GET IT Most Recent Pneumonia Vaccination: none Review of Systems All Other Systems Reviewed And Are Negative: Yes Constitutional: Positive: Fatigue Respiratory: Positive: Shortness Of Breath, Cough Physical Exam - Summary Physical Exam Summary: Vital Signs Reviewed: Yes A+Ox3, no distress Eyes: Conjunctiva Clear, EMILY. EOM intact and full ENT: Hearing grossly normal TM x 2 clear, mmoist, uvula midline, no exudate, no erythema Neck: Positive: Supple Respiratory: Positive: scattered wheeze, cough ronchi right upper lobe, speaking full sentences. no accessory muscle Cardiovascular: RRR nl s1, s2 no m/r CBT <2 sec abd soft + BS nt/nd no guarding, no distension Musculoskeletal Exam: HEARD x 4 without difficulty Strength Intact, ROM Intact Neurological: Positive: Alert, + sensation throughout Psychological: Positive: Normal Response To Family Skin: Positive: no rash, no ecchymosis Triage Information Reviewed: Yes UC Diagnostic Evaluation - Radiology Radiology Interpretation Completed By: Radiologist - Patient Name: YRIS KHANNA Medical Record#: [id number] Re-Evaluation - Re-Evaluation First Eval Change: Improved - Pt improved following neb few scattered wheeze, reports feeling better CXR neg will discharge home Rx pred, albuterol atrovent,doxy Respiratory Course/Dx - Course Course Of Treatment: Pt with progressive cough and wheeze x 3 days, yellow sputum, audible wheeze. on exam, VSS. pt with diffuse wheeze, right side rhonchi. Will give neb, cxr, pred and reassess - Differential Dx/Diagnosis Provider Diagnosis: COPD exacerbation Discharge - Sign-Out/Discharge Documenting (check all that apply): Patient Departure All imaging exams completed and their final reports reviewed: Yes - Discharge Plan Condition: Stable Disposition: HOME Prescriptions: Albuterol 2.5MG/3ML (0.083%)* [Ventolin 2.5 MG/3 ML NEB.NICOLE*] 2.5 mg INH Q4H PRN #30 neb.nicole PRN Reason: wheeze Azithromycin TAB* [Zithromax TAB (Z-ART) 250 mg #6 tabs] 2 tab PO .TODAY, THEN 1 DAILY #1 art Ipratropium 0.5MG/2.5ML NEB* [Atrovent 0.5 MG NEB.NICOLE*] 0.5 mg INH BID PRN #30 neb.soln PRN Reason: Sob/Wheezing predniSONE TAB* [Deltasone 10 MG TAB*] 10 mg PO DAILY #40 tab Patient Education Materials: Acute Bronchitis (ED), COPD (Chronic Obstructive Pulmonary Disease) (ED) Referrals: Dee Simeon MD [Primary Care Provider] - Additional Instructions: -Take antibiotics exactly as prescribed until gone -Use your albuterol puffer with spacer or your nebulizer ever 4 hours for the next 2 days - then as needed -Stay well hydrated - avoid excess caffeine and all alcohol - eat regular, healthy meals - humidify the air in the room where you sleep - boil water, run a hot steam shower, vaporizer, cups of water by heat register - okay to take over the counter decongestant and cough medication - These infections are spread by secretions - do NOT share eating or drinking utensils - clean items you share with other people such as cell phones, computer mouse, TV remote, computer tablets,etc.. Once you have been antibiotics for 2 days, change your toothbrush and your pillowcase. -Contact your doctor to arrange a follow-up appointment this week. Call your doctor, return here or go to the emergency department with any questions or concerns - Billing Disposition and Condition Condition: STABLE Disposition: Home
[2018-08-22 13:08] VITALS: BP 138/78
[2018-08-22] MEDS ORDERED: predniSONE TAB* 20 MG PO ONE (13:30)
== END 2018-08-22 14:31 | disposition home or self-care (01) ==
LOC: UCCORT 11:29
DX: J44.1 Chronic obstructive pulmonary disease with (acute) exacerbation (principal); Z88.0 Allergy status to penicillin; Z88.8 Allergy status to other drugs, medicaments and biological substances; E11.9 Type 2 diabetes mellitus without complications; I10 Essential (primary) hypertension; F17.210 Nicotine dependence, cigarettes, uncomplicated
CPT/HCPCS: 71046; 99212; G0463; J7512

== ENCOUNTER 2019-02-13 20:21 | Emergency (ER) | payer MEDICARE, MEDICAID ==
[2019-02-13 20:27] VITALS: BP 151/82
[2019-02-13] MEDS ORDERED: Ipratropium 0.5MG/2.5ML NEB* 0.5 MG/2.5 ML NEB.SOLN INH ONE (20:34)
[2019-02-13] MEDS ORDERED: Albuterol 2.5 MG/3 ML NEB.SOL* (0.083%) INH ONE (20:34)
[2019-02-13] MEDS ORDERED: Dexamethasone IV* 4 MG/ML 1 ML (4 MG) IM ONE (20:51)
--- NOTE | 2019-02-13 20:57 | UC ---
Respiratory Complaint HPI - HPI Summary HPI Summary: 53-year-old woman comes in with a chief complaint of shortness of breath. Patient has a history of COPD. Patient reports she ran out of her medicine. Now she short of breath. She's been wheezing. No fevers or chills or signs of infection. Activity makes it worse. Rest does make it better. - History of Current Complaint Chief Complaint: UCRespiratory Stated Complaint: DIFFICULTY BREATHING,COPD Time Seen by Provider: 02/13/19 20:33 Hx Last Menstrual Period: 1995 Pain Intensity: 0 - Allergies/Home Medications Allergies/Adverse Reactions: Allergies Allergy/AdvReac Type Severity Reaction Status Date / Time gabapentin Allergy Severe Hives/Diff. Verified 08/22/18 12:52 Breathing/I tching pregabalin [From Lyrica] Allergy Severe DUE TO Verified 08/22/18 12:52 ALLERGY TO GABAPENTIN Penicillins Allergy Intermediate Rash Verified 08/22/18 12:52 enviromental Allergy Intermediate sob Uncoded 08/22/18 12:52 ,cough,wheezing premixed albuterol and Allergy See Comment Uncoded 08/22/18 12:52 ipratropium PMH/Surg Hx/FS Hx/Imm Hx Previously Healthy: Yes Respiratory History: COPD - Surgical History Surgical History: Yes Surgery Procedure, Year, and Place: Cholecystectomy. Hysterectomy, 1995, [place], [place]. Rt WRIST - GANGLION CYST. BARIATRIC SURGERY. breast reduction - Family History Known Family History: Positive: Diabetes, Respiratory Disease, Non-Contributory Negative: Hypertension - Social History Alcohol Use: None Alcohol Amount: quit in 1996- History of alcoholism Substance Use Type: None Smoking Status (MU): Light Every Day Tobacco Smoker Type: Cigarettes Amount Used/How Often: 1 cigs/day Length of Time of Smoking/Using Tobacco: 39 Years Have You Smoked in the Last Year: Yes When Did the Patient Quit Smoking/Using Tobacco: ~11/20/16 Household Exposure Type: Cigarettes - Immunization History Most Recent Influenza Vaccination: NEVER GET IT Most Recent Pneumonia Vaccination: none Review of Systems All Other Systems Reviewed And Are Negative: Yes Constitutional: Positive: Negative Skin: Positive: Negative Eyes: Positive: Negative ENT: Positive: Negative Respiratory: Positive: Shortness Of Breath, Cough, Other - SEE HPI Cardiovascular: Positive: Negative Gastrointestinal: Positive: Negative Motor: Positive: Negative Neurovascular: Positive: Negative Musculoskeletal: Positive: Negative Neurological: Positive: Negative Psychological: Positive: Negative Is Patient Immunocompromised?: No Physical Exam Triage Information Reviewed: Yes Appearance: No Pain Distress, Well-Nourished, Other: - MILD RESPIRATORY DISTRESS Vital Signs: Initial Vital Signs Temp 97.9 F 02/13/19 20:23 Pulse 109 02/13/19 20:23 Resp 30 02/13/19 20:23 BP 151/82 02/13/19 20:23 Pulse Ox 98 02/13/19 20:23 Vital Signs Reviewed: Yes Eye Exam: Normal Eyes: Positive: Conjunctiva Clear ENT: Positive: Pharynx normal Neck: Positive: Supple Respiratory: Positive: Respiratory distress - MILD, Wheezing Cardiovascular: Positive: RRR Musculoskeletal: Positive: Strength Intact, ROM Intact Neurological: Positive: Alert, Muscle Tone Normal Psychological Exam: Normal Psychological: Positive: Age Appropriate Behavior Skin Exam: Normal Respiratory Course/Dx - Course Course Of Treatment: Patient improved in clinic after nebulizer of albuterol and ipratropium bromide and also by mouth Decadron 8 mg. Patient reports antibiotics help so therefore starting ease azithromycin. Also sent a prednisone taper prescription in. Patient follow-up with primary care doctor she gets worse can go the emergency department. - Differential Dx/Diagnosis Provider Diagnosis: COPD exacerbation Discharge - Sign-Out/Discharge Documenting (check all that apply): Patient Departure All imaging exams completed and their final reports reviewed: No Studies - Discharge Plan Condition: Stable Disposition: HOME Prescriptions: Azithromycin 250 mg PO DAILY #4 tablet predniSONE TAB* [Deltasone 20 MG TAB*] 20 mg PO SEE INSTRUCTIONS #19 tab Patient Education Materials: COPD (Chronic Obstructive Pulmonary Disease) (ED) Referrals: Dee Simeon MD [Primary Care Provider] - Additional Instructions: FOLLOW UP WITH YOUR DOCTOR IF NOT COMPLETELY IMPROVED. GO TO THE EMERGENCY DEPARTMENT IF YOUR CONDITION WORSENS OR ANY QUESTIONS OR CONCERNS. - Billing Disposition and Condition Condition: STABLE Disposition: Home
[2019-02-13] MEDS ORDERED: Azithromycin TAB* 250 MG PO ONE (21:36)
== END 2019-02-13 21:43 | disposition home or self-care (01) ==
LOC: UCCORT 20:21
DX: J44.1 Chronic obstructive pulmonary disease with (acute) exacerbation (principal); F17.210 Nicotine dependence, cigarettes, uncomplicated
CPT/HCPCS: 99213; A9270-GY; G0463; J1100

== ENCOUNTER 2019-06-06 19:33 | Emergency (ER) | payer MEDICARE, MEDICAID ==
[2019-06-06 20:05] VITALS: BP 127/61
[2019-06-06] MEDS ORDERED: predniSONE TAB* 20 MG PO ONE (20:18)
[2019-06-06] MEDS ORDERED: Azithromycin TAB* 250 MG PO ONE (20:18)
--- NOTE | 2019-06-06 20:21 | ED ---
Throat Pain/Nasal Congestion - HPI Summary HPI Summary: 54 yr old female with the complaint of runny nose, coughing, post nasal drip, shortness of breath, wheezing. She states she is out of her albuterol nebs and needs a refill, and prednisone. She has been ill for about three days, and getting worse. No CP. She cannot take penicillins and requests zithromax for her sinuses. She has no other complaints. - History of Current Complaint Chief Complaint: UCRespiratory Time Seen by Provider: 06/06/19 20:13 - Allergies/Home Medications Allergies/Adverse Reactions: Allergies Allergy/AdvReac Type Severity Reaction Status Date / Time gabapentin Allergy Severe Hives/Diff. Verified 06/06/19 20:05 Breathing/I tching pregabalin [From Lyrica] Allergy Severe DUE TO Verified 06/06/19 20:05 ALLERGY TO GABAPENTIN Penicillins Allergy Intermediate Rash Verified 06/06/19 20:05 enviromental Allergy Intermediate sob Uncoded 06/06/19 20:05 ,cough,wheezing premixed albuterol and Allergy See Comment Uncoded 06/06/19 20:05 ipratropium PMH/Surg Hx/FS Hx/Imm Hx Endocrine/Hematology History: Denies: Hx Diabetes, Hx Thyroid Disease Cardiovascular History: Denies: Hx Hypertension, Hx Myocardial Infarction, Hx Pacemaker/ICD, Other Cardiovascular Problems/Disorders Respiratory History: Reports: Hx Asthma, Hx Chronic Obstructive Pulmonary Disease (COPD), Hx Pneumonia, Hx Sleep Apnea Denies: Hx Lung Cancer, Other Respiratory Problems/Disorders GI History: Reports: Other GI Disorders - Cholecystectomy Denies: Hx Gastrointestinal Bleed, Hx Ulcer History: Reports: Other Problems/Disorders - stress incontinence occasionally Denies: Hx Dialysis, Hx Renal Disease Musculoskeletal History: Reports: Hx Arthritis Denies: Other Musculoskeletal History Sensory History: Reports: Hx Contacts or Glasses - Glasses for reading Denies: Hx Hearing Aid Opthamlomology History: Reports: Hx Contacts or Glasses - Glasses for reading Neurological History: Reports: Hx Nerve Disease - Radilculopathy-lower lumbar radiates down both legs Denies: Other Neuro Impairments/Disorders Psychiatric History: Reports: Hx Anxiety, Hx Inpatient Treatment - many years ago-1990, Hx Substance Abuse - Alcoholism Denies: Hx Depression, Hx Panic Disorder, Other Psychiatric Issues/Disorders - Cancer History Cancer Type, Location and Year: SKIN Hx Chemotherapy: No Hx Radiation Therapy: No - Surgical History Surgery Procedure, Year, and Place: Cholecystectomy. Hysterectomy, 1995, [place], [place]. Rt WRIST - [facility]. BARIATRIC SURGERY. breast reduction Hx Anesthesia Reactions: No Infectious Disease History: No Infectious Disease History: Denies: Hx Clostridium Difficile, Hx Hepatitis, Hx Human Immunodeficiency Virus (HIV), Hx of Known/Suspected MRSA, Hx Shingles, Hx Tuberculosis, Hx Known/ Suspected VRE, Hx Known/Suspected VRSA, History Other Infectious Disease, Traveled Outside the [place] in Last 30 Days - Family History Known Family History: Positive: Diabetes, Respiratory Disease, Non-Contributory Negative: Hypertension - Social History Alcohol Use: None Alcohol Amount: quit in 1996- History of alcoholism Substance Use Type: Reports: None Smoking Status (MU): Light Every Day Tobacco Smoker Type: Cigarettes Amount Used/How Often: 1 cigs/day Length of Time of Smoking/Using Tobacco: 39 Years Have You Smoked in the Last Year: Yes Review of Systems Constitutional: Negative Positive: Ear Ache, Nasal Discharge, Other - sinus pain Positive: Shortness Of Breath, Cough All Other Systems Reviewed And Are Negative: Yes Physical Exam Triage Information Reviewed: Yes Vital Signs On Initial Exam: Initial Vitals Temp Pulse Resp BP Pulse Ox 98.4 F 88 20 127/61 99 06/06/19 20:02 06/06/19 20:02 06/06/19 20:02 06/06/19 20:02 06/06/19 20:02 Vital Signs Reviewed: Yes Appearance: Positive: Well-Appearing, No Pain Distress Skin: Positive: Warm, Skin Color Reflects Adequate Perfusion Head/Face: Positive: Normal Head/Face Inspection Eyes: Positive: EOMI ENT: Positive: Pharynx normal, Nasal congestion, Nasal drainage, TMs normal, Sinus tenderness Neck: Positive: Nontender Respiratory/Lung Sounds: Positive: Clear to Auscultation, Breath Sounds Present Cardiovascular: Positive: RRR. Negative: Murmur Abdomen Description: Negative: Distended Musculoskeletal: Positive: Strength/ROM Intact Neurological: Positive: Sensory/Motor Intact, Alert, Oriented to Person Place, Time, CN Intact II-III, Normal Gait, Speech Normal Psychiatric: Positive: Normal - [place] Coma Scale Best Eye Response: 4 - Spontaneous Best Motor Response: 6 - Obeys Commands Best Verbal Response: 5 - Oriented Coma Scale Total: 15 Diagnostics - Vital Signs Vital Signs Temp Pulse Resp BP Pulse Ox 06/06/19 20:02 98.4 F 88 20 127/61 99 - Laboratory Lab Statement: Any lab studies that have been ordered have been reviewed, and results considered in the medical decision making process. EENT Course/Dx - Course Course Of Treatment: 54 yr old with sinusitis, copd exacerbation. DC home, nebs , mdi, zithromax, and prednisone. - Diagnoses Provider Diagnoses: Sinusitis, COPD exacerbation Discharge ED - Sign-Out/Discharge Documenting (check all that apply): Patient Departure All imaging exams completed and their final reports reviewed: No Studies - Discharge Plan Condition: Good Disposition: HOME Prescriptions: Albuterol 2.5MG/3ML (0.083%)* [Ventolin 2.5 MG/3 ML NEB.NICOLE*] 2.5 mg INH Q4H # 30 neb.nicole Albuterol HFA INHALER* [Ventolin HFA Inhaler*] 1 puff INH Q6H PRN #1 mdi PRN Reason: Cough Azithromycin TAB* [Zithromax TAB (Z-ART) 250 mg #6 tabs] 2 tab PO .TODAY, THEN 1 DAILY #1 art predniSONE TAB* [Deltasone 20 MG TAB*] 40 mg PO DAILY #8 tab Patient Education Materials: Sinusitis (ED), COPD (Chronic Obstructive Pulmonary Disease) (ED) Referrals: Dee Simeon MD [Primary Care Provider] - 2 Days - Billing Disposition and Condition Condition: GOOD Disposition: Home
== END 2019-06-06 20:27 | disposition home or self-care (01) ==
LOC: UCCORT 19:33
DX: J44.1 Chronic obstructive pulmonary disease with (acute) exacerbation (principal); J32.9 Chronic sinusitis, unspecified; F17.210 Nicotine dependence, cigarettes, uncomplicated; Z88.8 Allergy status to other drugs, medicaments and biological substances; Z88.0 Allergy status to penicillin; Z91.09 Other allergy status, other than to drugs and biological substances
CPT/HCPCS: 99212; A9270-GY; G0463; J7512

== ENCOUNTER 2019-07-30 13:20 | Emergency (ER) | payer MEDICARE, MEDICAID ==
[2019-07-30 13:45] VITALS: BP 124/64
[2019-07-30] MEDS ORDERED: Ipratropium 0.5MG/2.5ML NEB* 0.5 MG/2.5 ML NEB.SOLN INH ONE (13:52)
[2019-07-30] MEDS ORDERED: Albuterol 2.5 MG/3 ML NEB.SOL* (0.083%) INH ONE (13:53)
[2019-07-30] MEDS ORDERED: methylPREDNISolone 125 MG* 2 ML VIAL IM ONE (13:54)
--- NOTE | 2019-07-30 14:01 | UC ---
Respiratory Complaint HPI - HPI Summary HPI Summary: 64-year-old female with COPD who has been ill with wheezing and a cough over the past 3 days. She has used her albuterol inhaler without improvement. She has productive cough of yellow sputum. She continues to smoke. - History of Current Complaint Chief Complaint: UCRespiratory Stated Complaint: COUGH Time Seen by Provider: 07/30/19 13:45 Hx Obtained From: Patient Hx Last Menstrual Period: 1995 ?: No Onset/Duration: Gradual Onset Severity Initially: Mild Severity Currently: Moderate Pain Intensity: 0 Character: Cough: Productive - Productive cough of yellow sputum. Aggravating Factors: Exertion, Deep Breaths Alleviating Factors: Bronchodilator - Patient has been using her albuterol inhaler without improvement. Associated Signs And Symptoms: Positive: Wheezing, URI - Allergies/Home Medications Allergies/Adverse Reactions: Allergies Allergy/AdvReac Type Severity Reaction Status Date / Time gabapentin Allergy Severe Hives/Diff. Verified 07/30/19 13:40 Breathing/I tching pregabalin [From Lyrica] Allergy Severe DUE TO Verified 07/30/19 13:40 ALLERGY TO GABAPENTIN Penicillins Allergy Intermediate Rash Verified 07/30/19 13:40 enviromental Allergy Intermediate sob Uncoded 07/30/19 13:40 ,cough,wheezing premixed albuterol and Allergy See Comment Uncoded 07/30/19 13:40 ipratropium Home Medications: Home Medications Albuterol HFA INHALER* [Ventolin HFA Inhaler*] 1 puff INH Q1H PRN 07/30/19 [ History Confirmed 07/30/19] PMH/Surg Hx/FS Hx/Imm Hx Previously Healthy: Yes Respiratory History: COPD, Asthma - Surgical History Surgical History: Yes Surgery Procedure, Year, and Place: Cholecystectomy. Hysterectomy, 1995, [place], [place]. Rt WRIST - [facility]. BARIATRIC SURGERY. breast reduction - Family History Known Family History: Positive: Diabetes, Respiratory Disease, Non-Contributory Negative: Hypertension - Social History Alcohol Use: None Alcohol Amount: quit in 1996- History of alcoholism Substance Use Type: None Smoking Status (MU): Light Every Day Tobacco Smoker Type: Cigarettes Amount Used/How Often: 1 cigs/day Length of Time of Smoking/Using Tobacco: 39 Years Have You Smoked in the Last Year: Yes When Did the Patient Quit Smoking/Using Tobacco: ~11/20/16 Household Exposure Type: Cigarettes - Immunization History Most Recent Influenza Vaccination: NEVER GET IT Most Recent Pneumonia Vaccination: none Review of Systems All Other Systems Reviewed And Are Negative: Yes ENT: Positive: Nasal Discharge Respiratory: Positive: Cough - Productive cough of yellow sputum., Other - Wheezing for the past 3 days. She's been using her albuterol inhaler without improvement. Is Patient Immunocompromised?: No Physical Exam Triage Information Reviewed: Yes Appearance: Well-Appearing, No Pain Distress, Well-Nourished Vital Signs: Initial Vital Signs Temp 97.9 F 07/30/19 13:41 Pulse 102 07/30/19 13:41 Resp 20 07/30/19 13:41 BP 124/64 07/30/19 13:41 Pulse Ox 97 07/30/19 13:41 Vital Signs Reviewed: Yes Eyes: Positive: Conjunctiva Clear ENT: Positive: Hearing grossly normal, Pharynx normal, TMs normal, Uvula midline Respiratory: Positive: No respiratory distress, No accessory muscle use, Rhonchi - Scattered rhonchi and wheezing throughout., Wheezing - No distress. Cardiovascular: Positive: RRR, No Murmur, Pulses Normal, Brisk Capillary Refill Musculoskeletal Exam: Normal Neurological Exam: Normal Psychological Exam: Normal Skin Exam: Normal Re-Evaluation - Re-Evaluation First Eval Change: Improved - Lungs almost clear following the separate albuterol treatment and ipratropium treatment. Respiratory Course/Dx - Course Course Of Treatment: Chest x-ray: Patient refused Albuterol nebulizer: Patient states she is feeling much better with increased air movement. Ipratropium nebulizer: Patient states she is feeling much better with increased air movement and decreased wheezing. Her lungs are almost clear to auscultation. Patient insisted that the albuterol nebulizer and ipratropium nebulizer be separate entities because she usually has a really action to the DuoNeb with heart palpitations. I am giving her a prednisone taper and she is to follow-up with her primary care provider if no improvement in 2 or 3 days but she is to go to the emergency room for any worsening symptoms. - Differential Dx/Diagnosis Provider Diagnosis: Bronchitis Discharge ED - Sign-Out/Discharge Documenting (check all that apply): Patient Departure All imaging exams completed and their final reports reviewed: No Studies - Discharge Plan Condition: Fair Disposition: HOME Prescriptions: predniSONE TAB* [Deltasone 10 MG TAB*] 10 mg PO DAILY 12 Days #30 tab Patient Education Materials: Acute Bronchitis (ED) Referrals: Dee Simeon MD [Primary Care Provider] - Additional Instructions: Increase fluids, decrease smoking, use her albuterol inhaler 2 puffs every 4-6 hours as needed for wheezing OR use your nebulizer every 4 hours as needed. Follow-up with your primary care provider if no improvement in 2 or 3 days. Go to the emergency room for any worsening symptoms. - Billing Disposition and Condition Condition: FAIR Disposition: Home
== END 2019-07-30 14:39 | disposition home or self-care (01) ==
LOC: UCCORT 13:20
DX: J44.9 Chronic obstructive pulmonary disease, unspecified (principal); R09.81 Nasal congestion; F17.210 Nicotine dependence, cigarettes, uncomplicated; Z88.0 Allergy status to penicillin; Z88.8 Allergy status to other drugs, medicaments and biological substances; Z91.09 Other allergy status, other than to drugs and biological substances; Z79.899 Other long term (current) drug therapy
CPT/HCPCS: 96372; 99212; G0463; J2930